=== PATIENT | female | born 1935 | race Hispanic/Latino ===

== ENCOUNTER 2017-04-17 14:56 | Emergency (ER) | payer OTHER ==
[~2017-04-17 14:56] MED LIST: AMLO10TA2 PO; ATOR40TA69 PO; CEPH500B PO; DABI150C PO; LEVO50TA11 PO; PANT40TA25 PO; PIND10TA2 PO; SIMV20TA6 PO
[2017-04-17 15:45] LABS: BASOPHILS % (AUTO) 0.7 % (0.0-5.0); EOSINOPHILS % (AUTO) 1.7 % (0.0-8.0); HEMATOCRIT 36.8 % (36-48); LYMPHOCYTES % (AUTO) 21.7 % (21.0-51.0); MEAN CORPUSCULAR HEMOGLOBIN 29.1 pg (27.0-33.0); MEAN CORPUSCULAR HGB CONC 33.1 g/dL (32.0-36.0); MEAN CORPUSCULAR VOLUME 87.8 fL (79-99); MONOCYTES % (AUTO) 7.1 % (3.0-13.0); NEUTROPHILS % (AUTO) 68.8 % (40.0-77.0); PLATELET COUNT (AUTO) 211 K/uL (130-400); RED BLOOD CELL COUNT(AUTO) 4.19 MIL/uL (4.00-5.50); RED CELL DISTRIBUTION WIDTH 16.4 % (11.0-15.5); WHITE BLOOD COUNT (AUTO) 8.1 K/uL (4.8-10.8)
[2017-04-17 16:02] LABS: CREATININE 1.1 mg/dL (0.5-1.5); POTASSIUM 4.1 mmol/L (3.5-5.1)
[2017-04-17 16:05] LABS: INR 1.05 (0.85-1.15)
[2017-04-17 16:07] LABS: ALBUMIN 3.5 g/dL (3.5-5.0); BILIRUBIN,TOTAL 0.4 mg/dL (0.2-1.0); TOTAL PROTEIN, SERUM 7.7 g/dL (6.0-8.3)
[2017-04-17] MEDS ORDERED: ACETAMINOPHEN 325 MG TAB ONE (16:34)
[2017-04-17 16:56] LABS: ERYTHROCYTE SEDIMENTATION RATE 30 MM/HR (0-15)
[2017-04-17] MEDS ORDERED: FUROSEMIDE 10 MG/ML 4ML VIAL ONE (18:04)
== END 2017-04-17 19:45 | disposition home or self-care (01) ==
LOC: EDH 14:56
DX: I11.0 Hypertensive heart disease with heart failure (principal); I50.41 Acute combined systolic (congestive) and diastolic (congestive) heart failure; E11.9 Type 2 diabetes mellitus without complications; E78.5 Hyperlipidemia, unspecified; M54.2 Cervicalgia; R60.0 Localized edema; Z86.73 Personal history of transient ischemic attack (TIA), and cerebral infarction without residual deficits
CPT/HCPCS: 36415; 70450; 71045; 80053; 83880; 84484 ×2; 85025; 85610; 85651; 85730; 93005 ×3; 96374; 99285; J1940

== ENCOUNTER → 2018-01-02 | Outpatient (CLI) | payer OTHER ==
[~2018-01-02] VITALS: Ht 152.4 cm; Wt 74.8 kg
[~2018-01-02] MED LIST changes: -AMLO10TA2 PO; +AMLO10TA6 PO; +REGADENOSON 0.4 MG/5 ML PF SYG IVP SCH
== END | disposition home or self-care (01) ==
LOC: SHCH 12-25 08:26
PROVIDERS: ATTEND Internal Medicine Cardiovascular Disease
DX: I13.0 Hypertensive heart and chronic kidney disease with heart failure and stage 1 through stage 4 chronic kidney disease, or unspecified chronic kidney disease (principal); E11.22 Type 2 diabetes mellitus with diabetic chronic kidney disease; N18.4 Chronic kidney disease, stage 4 (severe); I50.42 Chronic combined systolic (congestive) and diastolic (congestive) heart failure; E78.5 Hyperlipidemia, unspecified; M17.12 Unilateral primary osteoarthritis, left knee; I48.0 Paroxysmal atrial fibrillation; I25.10 Atherosclerotic heart disease of native coronary artery without angina pectoris; K21.9 Gastro-esophageal reflux disease without esophagitis; Z95.0 Presence of cardiac pacemaker
CPT/HCPCS: 78452; 93017; 96374; A9500 ×2; J2785

== ENCOUNTER 2018-11-23 10:42 | Emergency (ER) | payer OTHER ==
[~2018-11-23 10:42] MED LIST changes: -AMLO10TA6 PO; +AMLO10TA7 PO; -REGADENOSON 0.4 MG/5 ML PF SYG IVP SCH
[2018-11-23] MEDS ORDERED: SODIUM CHLORIDE 0.9% 500ML 500 ML IV ONE (10:59)
[2018-11-23] MEDS ORDERED: METOPROLOL TARTRATE 1 MG/ML 5ML VIAL IV ONE (11:14)
[2018-11-23 11:17] LABS: CREATININE 1.3 mg/dL (0.5-1.5); POTASSIUM 3.8 mmol/L (3.5-5.1)
[2018-11-23 11:31] LABS: ALBUMIN 3.8 g/dL (3.5-5.0); BILIRUBIN,TOTAL 0.8 mg/dL (0.2-1.0); T4 (THYROXINE) 10.9 ug/dL (4.7-13.3); THYROID STIMULATING HORMONE 3.07 uIU/mL (0.36-3.74); TOTAL PROTEIN, SERUM 8.5 g/dL (6.0-8.3)
[2018-11-23 11:52] LABS: BASOPHILS % (AUTO) 0.6 % (0.0-5.0); EOSINOPHILS % (AUTO) 1.1 % (0.0-8.0); HEMATOCRIT 46.4 % (36-48); LYMPHOCYTES % (AUTO) 18.2 % (21.0-51.0); MEAN CORPUSCULAR HEMOGLOBIN 28.5 pg (27.0-33.0); MEAN CORPUSCULAR HGB CONC 31.9 g/dL (32.0-36.0); MEAN CORPUSCULAR VOLUME 89.4 fL (79-99); MONOCYTES % (AUTO) 8.3 % (3.0-13.0); NEUTROPHILS % (AUTO) 71.8 % (40.0-77.0); PLATELET COUNT (AUTO) 209 K/uL (130-400); RED CELL DISTRIBUTION WIDTH 14.4 % (11.0-15.5); WHITE BLOOD COUNT (AUTO) 10.3 K/uL (4.8-10.8)
[2018-11-23 12:09] LABS: INR 1.48 (0.85-1.15); PARTIAL THROMBOPLASTIN TIME 53.3 SEC (26.3-35.5); PROTHROMBIN TIME 15.4 SEC (9.6-11.6)
[2018-11-23] MEDS ORDERED: [UNRECOGNIZED DRUG - OTHER] IVP SCH (12:11)
== END 2018-11-23 13:11 | disposition home or self-care (01) ==
LOC: EDH 10:42
DX: R00.0 Tachycardia, unspecified (principal); I10 Essential (primary) hypertension; E11.9 Type 2 diabetes mellitus without complications; E78.5 Hyperlipidemia, unspecified; Z86.73 Personal history of transient ischemic attack (TIA), and cerebral infarction without residual deficits; Z98.890 Other specified postprocedural states
CPT/HCPCS: 36415; 80053; 84436; 84443; 85025; 85610; 85730; 93005; 96374; 99285; J3490; J7040

== ENCOUNTER 2018-12-10 11:06 | Observation (INO) | payer OTHER ==
[~2018-12-10] VITALS: Ht 152.4 cm; Wt 73.3 kg
[2018-12-10 11:39] LABS: BASOPHILS % (AUTO) 0.4 % (0.0-5.0); EOSINOPHILS % (AUTO) 1.3 % (0.0-8.0); HEMATOCRIT 42.6 % (36-48); LYMPHOCYTES % (AUTO) 15.9 % (21.0-51.0); MEAN CORPUSCULAR HEMOGLOBIN 29.4 pg (27.0-33.0); MEAN CORPUSCULAR HGB CONC 33.3 g/dL (32.0-36.0); MEAN CORPUSCULAR VOLUME 88.2 fL (79-99); MONOCYTES % (AUTO) 6.2 % (3.0-13.0); NEUTROPHILS % (AUTO) 76.2 % (40.0-77.0); PLATELET COUNT (AUTO) 213 K/uL (130-400); RED BLOOD CELL COUNT(AUTO) 4.83 MIL/uL (4.00-5.50); RED CELL DISTRIBUTION WIDTH 14.7 % (11.0-15.5); WHITE BLOOD COUNT (AUTO) 11.2 K/uL (4.8-10.8)
[2018-12-10 11:43] LABS: CREATININE 1.3 mg/dL (0.5-1.5); POTASSIUM 3.3 mmol/L (3.5-5.1)
[2018-12-10] MEDS ORDERED: NITROGLYCERIN 1GM/1 INCH PACKET TD ONE (12:14)
[2018-12-10] MEDS ORDERED: ASPIRIN 325 MG TABLET ONE (12:14)
[2018-12-10] MEDS ORDERED: SODIUM CHLORIDE 0.9% 1000ML 1,000 ML IV ONE (12:37)
[2018-12-10] MEDS ORDERED: IOHEXOL 350 MG/ML 100ML INFUS..BTL IV ONE (12:54)
[2018-12-10] MEDS ORDERED: METOPROLOL TARTRATE 1 MG/ML 5ML VIAL IV ONE (15:10)
[2018-12-10] MEDS ORDERED: METOPROLOL TARTRATE 1 MG/ML 5ML VIAL IV SCH (15:15)
[2018-12-10] MEDS ORDERED: POTASSIUM CHLORIDE 20 MEQ ERTAB PO ONE (15:49)
[2018-12-10 16:20] VITALS: BP 106/47
[2018-12-10] MEDS: ONDANSETRON HCL 4 MG/2 ML VIAL IVP SCH (17:00)
[2018-12-10] MEDS ORDERED: LIDOCAINE HCL-MPF 1% 2ML VIAL IJ PRN (17:15)
[2018-12-10] MEDS ORDERED: HYDROCODONE/ACETAMINOPHEN 5/325 MG TAB PO PRN (17:15)
[2018-12-10] MEDS ORDERED: LABETALOL 20 MG/4 ML DISP.SYRIN IV PRN (17:15)
[2018-12-10] MEDS ORDERED: ACETAMINOPHEN 325 MG TAB PO PRN (17:15)
[2018-12-10] MEDS ORDERED: POTASSIUM CHLORIDE 10% ELIXIR 20 MEQ/15 ML UDCUP PO PRN (17:15)
[2018-12-10] MEDS ORDERED: MORPHINE SULFATE 2 MG/ML 1ML SYG IVP PRN (17:15)
[2018-12-10] MEDS ORDERED: POTASSIUM CHLORIDE 20MEQ/100ML 100 ML IV PRN (17:15)
[2018-12-10 17:57] LABS: CREATINE KINASE, TOTAL 39 U/L (21-232); MYOGLOBIN 74 ng/mL (10-92); TROPONIN I < 0.04 ng/mL (0.00-0.06)
[2018-12-10] MEDS ORDERED: MIRA25TA PO (18:12)
[2018-12-10] MEDS ORDERED: METO50TA18 PO (18:12)
[2018-12-10] MEDS ORDERED: HYDR25TA PO (18:12)
[2018-12-10] MEDS: POTASSIUM CHLORIDE 20 MEQ ERTAB PO PRN ×2 (18:47→21:13)
[2018-12-10 19:08] VITALS: BP 154/78
[2018-12-10] MEDS: DABIGATRAN ETEXILATE MESYLATE 150 MG CAPSULE PO SCH (21:27)
[2018-12-10 23:47] LABS: CREATINE KINASE, TOTAL 48 U/L (21-232); MYOGLOBIN 71 ng/mL (10-92); TROPONIN I < 0.04 ng/mL (0.00-0.06)
[2018-12-11] VITALS: BP 157/95
[2018-12-11] MEDS: ONDANSETRON HCL 4 MG/2 ML VIAL IVP SCH ×3 (00:02→16:31)
[2018-12-11 04:10] VITALS: BP 130/56
[2018-12-11 04:59] LABS: CREATINE KINASE, TOTAL 35 U/L (21-232); MYOGLOBIN 69 ng/mL (10-92); TROPONIN I < 0.04 ng/mL (0.00-0.06)
[2018-12-11] MEDS: LEVOTHYROXINE 50 MCG TABLET PO SCH (06:39)
[2018-12-11 07:40] VITALS: BP 138/69
[2018-12-11] MEDS: PANTOPRAZOLE SODIUM 40 MG TABLET.DR PO SCH (08:47)
[2018-12-11] MEDS: ASPIRIN 81MG TAB.CHEW PO SCH (08:47)
[2018-12-11] MEDS: DABIGATRAN ETEXILATE MESYLATE 150 MG CAPSULE PO SCH ×2 (08:48→21:00)
[2018-12-11] MEDS: PINDOLOL 5 MG PO SCH (08:58)
[2018-12-11] MEDS ORDERED: ATORVASTATIN CALCIUM 40 MG TABLET PO SCH ×2 (09:00→21:00)
[2018-12-11] MEDS: AMLODIPINE BESYLATE 5 MG TAB PO SCH (09:00)
--- NOTE | 2018-12-11 09:30 | NUR ---
DYSPHAGIA EVAL COMPLETED. -S/S OF ASPIRATION. RECOMMEND REGULAR TEXTURE, THIN LIQUIDS; PILLS WHOLE WITH LIQUIDS. PLEASE ADD GRAVY TO MEATS, Pt COMPLAINS MEATS CAN BE TOO DRY FOR HER. Addendum: 12/11/18 at 1152 by JEFF ECHEVERRIA, [facility] Amended: Links added.
[2018-12-11 12:00] VITALS: BP 119/66
--- NOTE | 2018-12-11 13:25 | NUR ---
DCP CM met with pt and family discussed dc plans. Pt is semi-independent prior to admission, lives at home with spouse, family lives close by. Pt has a provider 6hrs between pt and spouse, jeremi. Denies any other equipments/services. Feels safe to go back home, spouse and family able to assist with transportation and needs as necessary. DC plan to home once stable. CM to cont to follow up. Addendum: 12/11/18 at 1327 by POP ENGLAND LVN CM Amended: Links added.
[2018-12-11 16:00] VITALS: BP 134/74
--- NOTE | 2018-12-11 16:18 | NUR ---
Pt Update Pt pending clearance form Cardio, Dr. Eisenberg paged by departmental secretary, pending call back from [facility].
[2018-12-11 20:00] VITALS: BP 147/59
[2018-12-11] MEDS ORDERED: METOPROLOL TARTRATE 50 MG TAB PO SCH (21:00)
[2018-12-12] VITALS: BP 149/82
[2018-12-12] MEDS: ONDANSETRON HCL 4 MG/2 ML VIAL IVP SCH ×2 (01:51→08:11)
[2018-12-12 04:00] VITALS: BP 136/56
[2018-12-12] MEDS: LEVOTHYROXINE 50 MCG TABLET PO SCH (06:29)
[2018-12-12 07:00] VITALS: BP 149/66
[2018-12-12] MEDS: PANTOPRAZOLE SODIUM 40 MG TABLET.DR PO SCH (08:10)
[2018-12-12] MEDS: DABIGATRAN ETEXILATE MESYLATE 150 MG CAPSULE PO SCH (08:10)
[2018-12-12] MEDS: ASPIRIN 81MG TAB.CHEW PO SCH (08:11)
[2018-12-12] MEDS: PINDOLOL 5 MG PO SCH (08:11)
[2018-12-12] MEDS: AMLODIPINE BESYLATE 5 MG TAB PO SCH (08:14)
[2018-12-12] MEDS ORDERED: ONDANSETRON HCL 4 MG/2 ML VIAL IVP PRN (08:30)
[2018-12-12] MEDS ORDERED: HYDROCHLOROTHIAZIDE 25 MG TABLET PO SCH (09:00)
[2018-12-12] MEDS ORDERED: **HM** MYRBETRIQ 25MG PO SCH (09:00)
[2018-12-12 11:00] VITALS: BP 142/75
--- NOTE | 2018-12-12 12:40 | NUR ---
Pt Update Pt d/c at this time, d/c paper signed, PIV taken out, no complication noted, awaiting spouse for transportation to home.
== END 2018-12-12 13:20 | disposition home or self-care (01) ==
LOC: EDH 11:06 → EDHIP 14:10 → 3BH 17:09
PROVIDERS: ADMIT Internal Medicine Critical Care Medicine; ATTEND Internal Medicine Critical Care Medicine
DX: R07.89 Other chest pain (principal); E11.9 Type 2 diabetes mellitus without complications; E66.9 Obesity, unspecified; E78.5 Hyperlipidemia, unspecified; I10 Essential (primary) hypertension; I25.10 Atherosclerotic heart disease of native coronary artery without angina pectoris; I42.9 Cardiomyopathy, unspecified; I45.10 Unspecified right bundle-branch block; I48.2 Chronic atrial fibrillation; Z79.01 Long term (current) use of anticoagulants; Z95.0 Presence of cardiac pacemaker; Z95.1 Presence of aortocoronary bypass graft; Z79.899 Other long term (current) drug therapy; Z86.73 Personal history of transient ischemic attack (TIA), and cerebral infarction without residual deficits
CPT/HCPCS: 36415 ×2; 71045; 71275; 80048; 82550 ×3; 82948 ×8; 83874 ×3; 84132; 84484 ×4; 85025; 85378; 92610; 93005 ×2; 96374; 96376; 99291; G0378 ×47; J2405 ×2; J3490; J7030; Q9967

== ENCOUNTER 2019-02-04 19:05 | Inpatient (IN) | payer OTHER ==
[~2019-02-04] VITALS: Ht 149.9 cm; Wt 74.9 kg
[~2019-02-04 19:05] MED LIST changes: -AMLO10TA7 PO; -CEPH500B PO; +HYDR25TA PO; +METO50TA18 PO; +MIRA25TA PO; -PIND10TA2 PO; -SIMV20TA6 PO
[2019-02-04 19:38] LABS: APPEARANCE,URINE Clear (CLEAR); BILIRUBIN,URINE Negative (NEGATIVE); COLOR,URINE Yellow (YELLOW); GLUCOSE, URINE (UA) Negative (NEGATIVE); KETONES,URINE Negative (NEGATIVE); LEUKOCYTE ESTERASE ,URINE Moderate (NEGATIVE); NITRATE,URINE Negative (NEGATIVE); OCCULT BLOOD,URINE Trace (NEGATIVE); PROTEIN,URINE POS 1+ mg/dL (NEGATIVE)
[2019-02-04] MEDS ORDERED: ONDANSETRON HCL 4 MG/2 ML VIAL ONE (19:39)
[2019-02-04] MEDS ORDERED: SODIUM CHLORIDE 0.9% 1000ML 1,000 ML IV ONE (19:40)
[2019-02-04] MEDS ORDERED: MORPHINE SULFATE 4 MG/1ML SYG ONE ×2 (19:40→21:11)
[2019-02-04 19:44] LABS: BASOPHILS % (AUTO) 0.7 % (0.0-5.0); HEMATOCRIT 45.2 % (36-48); LYMPHOCYTES % (AUTO) 8.1 % (21.0-51.0); MEAN CORPUSCULAR HGB CONC 33.6 g/dL (32.0-36.0); MEAN CORPUSCULAR VOLUME 89.3 fL (79-99); MONOCYTES % (AUTO) 4.1 % (3.0-13.0); NEUTROPHILS % (AUTO) 87.1 % (40.0-77.0); NUCLEATED RED BLOOD CELLS 0.1 % (0.0-0.19); PLATELET COUNT (AUTO) 230 K/uL (130-400); RED BLOOD CELL COUNT(AUTO) 5.06 MIL/uL (4.00-5.50); RED CELL DISTRIBUTION WIDTH 15.3 % (11.0-15.5); WHITE BLOOD COUNT (AUTO) 15.8 K/uL (4.8-10.8)
[2019-02-04 19:53] LABS: BACTERIA,URINE Few /HPF (None Seen)
[2019-02-04 19:54] LABS: SQUAMOUS EPITHELIAL CELL,UR Few /HPF (0-2)
[2019-02-04 19:59] LABS: INR 1.25 (0.85-1.15)
[2019-02-04 20:19] LABS: CREATININE 1.3 mg/dL (0.5-1.5); POTASSIUM 3.4 mmol/L (3.5-5.1)
[2019-02-04 20:24] LABS: ALBUMIN 3.9 g/dL (3.5-5.0); BILIRUBIN,TOTAL 0.7 mg/dL (0.2-1.0); TOTAL PROTEIN, SERUM 8.9 g/dL (6.0-8.3)
[2019-02-04] MEDS ORDERED: METOPROLOL TARTRATE 1 MG/ML 5ML VIAL IV ONE ×2 (21:11→23:05)
[2019-02-04] MEDS ORDERED: ZOSYN 3.375GM+NS 50ML 50 ML IV ONE (23:28)
[2019-02-04] MEDS ORDERED: DILTIAZEM HCL 5 MG/ML 5 ML VIAL IVP PRN (23:45)
[2019-02-05] MEDS ORDERED: ONDANSETRON HCL 4 MG/2 ML VIAL ONE ×2 (00:13→09:36)
[2019-02-05] MEDS ORDERED: METOPROLOL TARTRATE 1 MG/ML 5ML VIAL IV ONE (00:13)
[2019-02-05] MEDS ORDERED: DILTIAZEM HCL 5 MG/ML 5 ML VIAL IVP ONE ×2 (00:34→02:19)
[2019-02-05] MEDS ORDERED: HYDROMORPHONE 1 MG/1 ML AMP ONE ×2 (00:45→15:30)
[2019-02-05] MEDS ORDERED: SODIUM CHLORIDE 0.9% 100 ML IV ONE (02:18)
[2019-02-05] MEDS ORDERED: DILTIAZEM HCL 5 MG/ML 10 ML VIAL IV ONE (02:18)
[2019-02-05] MEDS ORDERED: ZOSYN 3.375GM+NS 50ML 50 ML IV ONE ×2 (06:38→11:46)
[2019-02-05 16:25] VITALS: BP 117/49
[2019-02-05] MEDS ORDERED: DILTIAZEM 125MG+100 ML NS 125 ML IV STA (17:50)
[2019-02-05] MEDS ORDERED: NICARDIPINE IN NACL, ISO-OSM 200 ML IV PRN (18:00)
[2019-02-05] MEDS ORDERED: DILTIAZEM HCL 5 MG/ML 10 ML VIAL IV PRN (18:00)
--- NOTE | 2019-02-05 18:00 | NUR ---
ROLAND FORREST FOR CONSULT.
[2019-02-05] MEDS ORDERED: NICARDIPINE HCL 100 MG in SODIUM CHLORIDE 0.9% 60 ML IV PRN (18:15)
[2019-02-05] MEDS ORDERED: DILTIAZEM 125MG+100 ML NS 125 ML IV SCH (18:15)
[2019-02-05] MEDS: DEXTROSE 5 %-0.45 % NACL 1,000 ML IV SCH (18:46)
[2019-02-05] MEDS: INSULIN HUMULIN R 100 UNIT/ML 3ML SQ SCH (19:39)
[2019-02-05 20:26] VITALS: BP 105/59
[2019-02-06] VITALS (7 sets, daily range): BP systolic 116–133; BP diastolic 58–96
[2019-02-06] MEDS: ZOSYN 3.375GM+NS 50ML 50 ML IV SCH ×2 (00:41→12:12)
[2019-02-06] MEDS: HYDROMORPHONE 1 MG/1 ML AMP IVP PRN ×3 (01:51→21:20)
[2019-02-06] MEDS: ONDANSETRON HCL 4 MG/2 ML VIAL IVP PRN (01:51)
[2019-02-06] MEDS: INSULIN HUMULIN R 100 UNIT/ML 3ML SQ SCH ×4 (06:01→21:00)
[2019-02-06 11:32] LABS: BASOPHILS % (AUTO) 0.1 % (0.0-5.0); HEMATOCRIT 42.4 % (36-48); LYMPHOCYTES % (AUTO) 2.4 % (21.0-51.0); MEAN CORPUSCULAR HEMOGLOBIN 29.4 pg (27.0-33.0); MEAN CORPUSCULAR HGB CONC 32.8 g/dL (32.0-36.0); MEAN CORPUSCULAR VOLUME 89.5 fL (79-99); MONOCYTES % (AUTO) 3.2 % (3.0-13.0); NEUTROPHILS % (AUTO) 94.3 % (40.0-77.0); PLATELET COUNT (AUTO) 151 K/uL (130-400); RED BLOOD CELL COUNT(AUTO) 4.73 MIL/uL (4.00-5.50); RED CELL DISTRIBUTION WIDTH 15.5 % (11.0-15.5)
[2019-02-06 11:45] LABS: ALBUMIN 2.4 g/dL (3.5-5.0); BILIRUBIN,TOTAL 0.9 mg/dL (0.2-1.0); CREATININE 2.8 mg/dL (0.5-1.5); POTASSIUM 3.3 mmol/L (3.5-5.1); TOTAL PROTEIN, SERUM 7.1 g/dL (6.0-8.3)
[2019-02-06 11:49] LABS: WHITE BLOOD COUNT (AUTO) 30.7 K/uL (4.8-10.8)
[2019-02-06 12:16] LABS: BAND NEUTROPHILS % (MANUAL) 11 % (0-2); LYMPHOCYTES % (MANUAL) 2 % (22-44); MONOCYTES % (MANUAL) 1 % (2-9); SEGMENTED NEUTROPHILS % 86 % (40-70)
[2019-02-06 12:17] LABS: PLATELET MORPHOLOGY COMMENT ADEQUATE
--- NOTE | 2019-02-06 16:48 | NUR ---
cm note met with patient and states resides athome with spouse has walker, and cane alternatively. has provider 2-3 hrs daily to assist with adls and self care, spouse transports to md. dc plan is back home at time of dc. Addendum: 02/06/19 at 1649 by WAYNE ALFREDO CM Amended: Links added.
[2019-02-06] MEDS: DEXTROSE 5 %-0.45 % NACL 1,000 ML IV SCH (17:45)
[2019-02-07] VITALS (26 sets, daily range): BP systolic 81–137; BP diastolic 41–79
[2019-02-07] MEDS: INSULIN HUMULIN R 100 UNIT/ML 3ML SQ SCH ×3 (00:33→18:40)
[2019-02-07] MEDS: ZOSYN 3.375GM+NS 50ML 50 ML IV SCH ×2 (00:33→12:10)
[2019-02-07] MEDS: HYDROMORPHONE 1 MG/1 ML AMP IVP PRN (02:02)
[2019-02-07 07:54] LABS: INR 1.2 (0.85-1.15); PROTHROMBIN TIME 12.5 SEC (9.6-11.6)
[2019-02-07] MEDS: FAMOTIDINE/PF 20 MG/2 ML VIAL IV SCH (09:03)
[2019-02-07] MEDS ORDERED: SUCCINYLCHOLINE 200MG/10ML SYR ONE (13:32)
[2019-02-07] MEDS ORDERED: LIDOCAINE PF 2% 5ML ABBOJECT ONE (13:32)
[2019-02-07] MEDS ORDERED: DEXAMETHASONE SOD PHOSPHATE 10MG/ML 1ML VIAL ONE (13:32)
[2019-02-07] MEDS ORDERED: PROPOFOL 10 MG/ML 20ML VIAL IV ONE (13:34)
[2019-02-07] MEDS ORDERED: NEOSTIGMINE 5MG/5ML SYR IV ONE (13:34)
[2019-02-07] MEDS ORDERED: ONDANSETRON HCL 4 MG/2 ML VIAL ONE (13:34)
[2019-02-07] MEDS ORDERED: GLYCOPYRROLATE 1 MG/5 ML SYRINGE ONE (13:34)
[2019-02-07] MEDS ORDERED: MIDAZOLAM HCL 1 MG/ML 2ML VIAL ONE (13:34)
[2019-02-07] MEDS ORDERED: ROCURONIUM 10MG/1ML SYR 10 MG/ML ML ONE ×2 (13:35→15:04)
[2019-02-07] MEDS ORDERED: FENTANYL CITRATE PF 50 MCG/1 ML 2ML VIAL ONE (13:35)
--- NOTE | 2019-02-07 13:44 | NUR ---
RD Notification Pt admitted for Afib RVR, Acute Cholecystitis. RD Notification of dry mouth, NGT present. Pt NPO Pending Procedure. NGT previously placed secondary to intractable N/V, as per EMR. Anticipate improved symptoms, post-procedure, therefore recommend, when medically feasible, advance diet as tolerated to Low Fat, 60gm, Heart Healthy diet, Ensure Clear with meals. Recommend ice chips for dry mouth, as medically feasible. Pt is advanced age (83y/o). Pt LBM 02/03/19. Pt monitored labs: WBC 30.7, K 3.3, BUN 51, Cr 2.8, GFR 17, Glu 211, Alb 2.4. RD to continue to monitor. Please notify RD as additional nutrition concerns arise. Thank you. Addendum: 02/07/19 at [address] Amended: Links added.
[2019-02-07] MEDS ORDERED: EPHEDRINE SULFATE 50 MG/ML AMPULE ONE (13:47)
[2019-02-07] MEDS ORDERED: BUPIVACAINE/PF 0.5% 30ML VIAL ONE (13:50)
[2019-02-07] MEDS: SODIUM CHLORIDE 0.9% 1000ML 1,000 ML IV SCH ×2 (15:10→16:00)
[2019-02-07] MEDS ORDERED: PROPOFOL 1000 MG/100 ML 100 ML IV ONE (15:14)
--- NOTE | 2019-02-07 15:40 | NUR ---
Dr. Ruiz notified about consult and patients status by telephone. Asked for orders to be inserted. Was given an update by telephone when ABGs and chest x-ray were completed.
[2019-02-07] MEDS ORDERED: PROPOFOL 1000 MG/100 ML 100 ML IV PRN (15:45)
[2019-02-07] MEDS ORDERED: SODIUM CHLORIDE 0.9% 1000ML 1,000 ML IV ONE (15:55)
[2019-02-07 16:00] LABS: ABG BASE EXCESS -8.5 mmol/L (-2.0-3.0); ABG OXYGEN SATURATION 98.5 % (95.0-99.0); ABG PCO2 31 mmHg (32-45)
[2019-02-07 16:28] LABS: BASOPHILS % (AUTO) 0.1 % (0.0-5.0); EOSINOPHILS % (AUTO) 0.2 % (0.0-8.0); LYMPHOCYTES % (AUTO) 2.9 % (21.0-51.0); MEAN CORPUSCULAR HEMOGLOBIN 29.2 pg (27.0-33.0); MEAN CORPUSCULAR HGB CONC 32.2 g/dL (32.0-36.0); MEAN CORPUSCULAR VOLUME 90.6 fL (79-99); MONOCYTES % (AUTO) 3.8 % (3.0-13.0); PLATELET COUNT (AUTO) 114 K/uL (130-400); RED BLOOD CELL COUNT(AUTO) 3.75 MIL/uL (4.00-5.50); RED CELL DISTRIBUTION WIDTH 15.8 % (11.0-15.5); WHITE BLOOD COUNT (AUTO) 14.8 K/uL (4.8-10.8)
[2019-02-07 16:46] LABS: ALBUMIN 1.7 g/dL (3.5-5.0); BILIRUBIN,TOTAL 0.6 mg/dL (0.2-1.0); CREATININE 2.2 mg/dL (0.5-1.5); TOTAL PROTEIN, SERUM 5.6 g/dL (6.0-8.3)
[2019-02-07] MEDS: DEXTROSE 5 %-0.45 % NACL 1,000 ML IV SCH (17:45)
[2019-02-07 17:49] LABS: MAGNESIUM 1.5 mg/dL (1.80-2.40); PHOSPHORUS 4.2 mg/dL (2.5-4.9)
--- NOTE | 2019-02-07 18:00 | NUR ---
Dr Acevedo at bedside given an update on patient status
[2019-02-07] MEDS: POTASSIUM CHLORIDE 20MEQ/100ML 100 ML IV PRN ×2 (18:24→20:05)
[2019-02-07] MEDS ORDERED: LIDOCAINE HCL-MPF 1% 2ML VIAL ONE (19:54)
[2019-02-07] MEDS: MAGNESIUM 2GM PREMIX 50ML 50 ML IV PRN (20:00)
[2019-02-08] VITALS (62 sets, daily range): BP systolic 99–184; BP diastolic 35–93
[2019-02-08] MEDS: ZOSYN 3.375GM+NS 50ML 50 ML IV SCH ×2 (01:16→11:54)
[2019-02-08] MEDS: SODIUM CHLORIDE 0.9% 1000ML 1,000 ML IV SCH ×2 (01:17→11:58)
[2019-02-08] MEDS: INSULIN HUMULIN R 100 UNIT/ML 3ML SQ SCH ×4 (01:50→21:00)
--- NOTE | 2019-02-08 02:09 | NUR ---
REMAINS INTUBATED/SEDATED. NO DISTRESS NOTED. NO CHANGE IN STATUS. ABDOMINAL INCISIONS WITH DRESSINGS DRY & INTACT. BEDSIDE MONITORING. Addendum: 02/08/19 at 0210 by GABRIELE MONROE RN RN Amended: Links added.
[2019-02-08 05:34] LABS: BASOPHILS % (AUTO) 0.2 % (0.0-5.0); HEMATOCRIT 29.6 % (36-48); LYMPHOCYTES % (AUTO) 4.1 % (21.0-51.0); MEAN CORPUSCULAR HEMOGLOBIN 29.6 pg (27.0-33.0); MEAN CORPUSCULAR HGB CONC 32.9 g/dL (32.0-36.0); MEAN CORPUSCULAR VOLUME 90.2 fL (79-99); MONOCYTES % (AUTO) 4.8 % (3.0-13.0); NEUTROPHILS % (AUTO) 89.9 % (40.0-77.0); PLATELET COUNT (AUTO) 102 K/uL (130-400); RED BLOOD CELL COUNT(AUTO) 3.29 MIL/uL (4.00-5.50); RED CELL DISTRIBUTION WIDTH 16.1 % (11.0-15.5); WHITE BLOOD COUNT (AUTO) 20.3 K/uL (4.8-10.8)
[2019-02-08 06:02] LABS: ALBUMIN 1.5 g/dL (3.5-5.0); BILIRUBIN,TOTAL 0.6 mg/dL (0.2-1.0); CREATININE 2.4 mg/dL (0.5-1.5); POTASSIUM 3.6 mmol/L (3.5-5.1); TOTAL PROTEIN, SERUM 5.3 g/dL (6.0-8.3)
[2019-02-08] MEDS ORDERED: PHARMACY COMMUNICATION MISC SCH ×2 (06:45→08:00)
[2019-02-08] MEDS: HYDROMORPHONE 1 MG/1 ML AMP IVP PRN ×2 (08:10→22:14)
[2019-02-08] MEDS: FAMOTIDINE/PF 20 MG/2 ML VIAL IV SCH (08:13)
[2019-02-08] MEDS ORDERED: AMIODARONE HCL 700 MG in DEXTROSE 5%-WATER 500 ML IV SCH (08:15)
[2019-02-08] MEDS ORDERED: AMIODARONE HCL 300 MG in DEXTROSE 5%-WATER 250 ML IV SCH (08:15)
--- NOTE | 2019-02-08 08:55 | NUR ---
Drainage noted around the AUSTEN drain site so dressing was removed and changed
[2019-02-08 08:56] LABS: ABG BASE EXCESS -8.1 mmol/L (-2.0-3.0); ABG HCO3 15.9 mmol/L (21.0-28.0); ABG OXYGEN SATURATION 98.2 % (95.0-99.0); ABG PCO2 29 mmHg (32-45)
--- NOTE | 2019-02-08 13:30 | NUR ---
Patient extubated at 1330 RT and RN present
[2019-02-08] MEDS ORDERED: POTASSIUM CHLORIDE 20 MEQ ERTAB PO PRN (14:45)
[2019-02-08] MEDS ORDERED: LIDOCAINE HCL-MPF 1% 2ML VIAL IV PRN (14:45)
[2019-02-08] MEDS ORDERED: POTASSIUM CHLORIDE 20MEQ/100ML 100 ML IV PRN (14:45)
[2019-02-08] MEDS: DEXTROSE 5 %-0.45 % NACL 1,000 ML IV SCH (17:45)
--- NOTE | 2019-02-08 18:08 | NUR ---
Dr. Lindsey rounded updated on patients condition. ordered for NG tube to be removed
[2019-02-08] MEDS ORDERED: INSULIN HUMULIN R 100 UNIT/ML 3ML SQ SCH (21:00)
[2019-02-09] VITALS (25 sets, daily range): BP systolic 104–179; BP diastolic 43–119
[2019-02-09] MEDS: ZOSYN 3.375GM+NS 50ML 50 ML IV SCH ×3 (00:34→23:10)
[2019-02-09] MEDS: SODIUM CHLORIDE 0.9% 1000ML 1,000 ML IV SCH ×3 (00:35→21:39)
[2019-02-09] MEDS: INSULIN HUMULIN R 100 UNIT/ML 3ML SQ SCH ×5 (00:37→20:27)
[2019-02-09 03:56] LABS: BASOPHILS % (AUTO) 0.1 % (0.0-5.0); HEMATOCRIT 27.2 % (36-48); LYMPHOCYTES % (AUTO) 4.5 % (21.0-51.0); MEAN CORPUSCULAR HEMOGLOBIN 28.7 pg (27.0-33.0); MEAN CORPUSCULAR HGB CONC 32.3 g/dL (32.0-36.0); MEAN CORPUSCULAR VOLUME 88.9 fL (79-99); MONOCYTES % (AUTO) 4.6 % (3.0-13.0); NEUTROPHILS % (AUTO) 90.8 % (40.0-77.0); PLATELET COUNT (AUTO) 101 K/uL (130-400); RED BLOOD CELL COUNT(AUTO) 3.06 MIL/uL (4.00-5.50); RED CELL DISTRIBUTION WIDTH 15.9 % (11.0-15.5)
[2019-02-09 04:00] LABS: CREATININE 1.8 mg/dL (0.5-1.5)
[2019-02-09 04:03] LABS: POTASSIUM 2.9 mmol/L (3.5-5.1)
[2019-02-09] MEDS: POTASSIUM CHLORIDE 20MEQ/100ML 100 ML IV PRN ×2 (04:18→12:27)
--- NOTE | 2019-02-09 09:02 | NUR ---
DYSPHAGIA EVAL COMPLETED. -S/S OF ASPIRATION. RECOMMEND MECHANICAL SOFT/CHOPPED, THIN LIQUIDS; PILLS WHOLE WITH LIQUIDS. Addendum: 02/10/19 at 0804 by JEFF ECHEVERRIA, [facility] Amended: Links added.
[2019-02-09] MEDS: FAMOTIDINE/PF 20 MG/2 ML VIAL IV SCH (09:17)
[2019-02-09] MEDS: AMIODARONE HCL 200 MG TABLET PO SCH (09:18)
[2019-02-09] MEDS: DEXTROSE 5 %-0.45 % NACL 1,000 ML IV SCH (17:45)
[2019-02-10] VITALS (18 sets, daily range): BP systolic 32–167; BP diastolic 12–117
[2019-02-10 03:54] LABS: HEMATOCRIT 27.5 % (36-48); MEAN CORPUSCULAR HEMOGLOBIN 29.3 pg (27.0-33.0); MEAN CORPUSCULAR HGB CONC 32.8 g/dL (32.0-36.0); MEAN CORPUSCULAR VOLUME 89.4 fL (79-99); PLATELET COUNT (AUTO) 100 K/uL (130-400); RED BLOOD CELL COUNT(AUTO) 3.08 MIL/uL (4.00-5.50); WHITE BLOOD COUNT (AUTO) 14.1 K/uL (4.8-10.8)
[2019-02-10] MEDS: SODIUM CHLORIDE 0.9% 1000ML 1,000 ML IV SCH (04:10)
[2019-02-10 04:20] LABS: CREATININE 1.2 mg/dL (0.5-1.5); POTASSIUM 3.4 mmol/L (3.5-5.1)
[2019-02-10] MEDS: POTASSIUM CHLORIDE 10% ELIXIR 20 MEQ/15 ML UDCUP PO PRN ×2 (05:46→08:34)
[2019-02-10] MEDS: INSULIN HUMULIN R 100 UNIT/ML 3ML SQ SCH ×3 (06:32→17:07)
--- NOTE | 2019-02-10 07:30 | NUR ---
Bedside report given to incoming NOD using SBAR,all questions answered.Reviewed labs,meds and V/s.
[2019-02-10] MEDS: METOPROLOL TARTRATE 25 MG TAB PO SCH ×2 (08:33→18:26)
[2019-02-10] MEDS: FAMOTIDINE/PF 20 MG/2 ML VIAL IV SCH (08:33)
[2019-02-10] MEDS: AMIODARONE HCL 200 MG TABLET PO SCH (08:33)
[2019-02-10] MEDS ORDERED: DABIGATRAN ETEXILATE MESYLATE 150 MG CAPSULE PO SCH (09:00)
--- NOTE | 2019-02-10 11:28 | NUR ---
FOLLOW UP COMPLETED. Pt CURRENTLY ON LIQUID DIET PER SURGEONS RECOMMENDATIONS. OK TO ADVANCE TO MECHANICAL SOFT/CHOPPED THIN LIQUIDS WHEN CLEARED BY SURGEON. CONTINUE CURRENT DIET. Addendum: 02/10/19 at 1131 by JEFF ECHEVERRIA, [facility] Amended: Links added.
--- NOTE | 2019-02-10 11:30 | NUR ---
DR. ANDERSEN AT BEDSIDE. PLAN OF CARE DISCUSSED. NEW ORDERS RECEIVED AND NOTED.
[2019-02-10] MEDS: DEXTROSE 5%-WATER 1,000 ML IV SCH (11:59)
[2019-02-10] MEDS: ZOSYN 3.375GM+NS 50ML 50 ML IV SCH (11:59)
--- NOTE | 2019-02-10 14:00 | NUR ---
DR. KOTHARI AND / KEMI SRIVASTAVA CALLED AND NOTIFIED OF HEMATURIA.NEW ORDERS RECEIVED AND NOTED.
--- NOTE | 2019-02-10 14:19 | NUR ---
RD NOTIFICATION Diet: Clear Liquids. [employer] consulted and recommends mechanical soft/chopped, thin liquids. Pt tolerating diet well at this time. LBM: 02/06, noted. Pt with po intake at 75% and has fair appetite. Recommendations: Assistance with all meals Offer oral supplementation- Glucerna BID Recommend a stool softener Advance diet when medically feasible to full liquids, lastly to 75gmCCD and Low fat diet/ mechanical soft/chopped. RD will monitor and follow up as needed, thank you. Addendum: 02/10/19 at [address] Amended: Links added.
[2019-02-10 14:34] LABS: HEMATOCRIT 29.7 % (36-48); MEAN CORPUSCULAR HEMOGLOBIN 29.3 pg (27.0-33.0); MEAN CORPUSCULAR HGB CONC 32.4 g/dL (32.0-36.0); MEAN CORPUSCULAR VOLUME 90.3 fL (79-99); PLATELET COUNT (AUTO) 117 K/uL (130-400); RED BLOOD CELL COUNT(AUTO) 3.29 MIL/uL (4.00-5.50); RED CELL DISTRIBUTION WIDTH 16.1 % (11.0-15.5); WHITE BLOOD COUNT (AUTO) 12.6 K/uL (4.8-10.8)
[2019-02-10 14:47] LABS: INR 1.22 (0.85-1.15); MAGNESIUM 1.9 mg/dL (1.80-2.40); PARTIAL THROMBOPLASTIN TIME 46.1 SEC (26.3-35.5); PHOSPHORUS 2.5 mg/dL (2.5-4.9); PROTHROMBIN TIME 12.7 SEC (9.6-11.6)
--- NOTE | 2019-02-10 16:30 | NUR ---
PT TAKEN FOR CT HEAD. TOLERATED WELL.
[2019-02-10] MEDS: DEXTROSE 5 %-0.45 % NACL 1,000 ML IV SCH (16:57)
[2019-02-11] VITALS (7 sets, daily range): BP systolic 114–176; BP diastolic 50–88
[2019-02-11] MEDS: ZOSYN 3.375GM+NS 50ML 50 ML IV SCH ×2 (00:08→11:42)
[2019-02-11] MEDS: INSULIN HUMULIN R 100 UNIT/ML 3ML SQ SCH ×4 (00:12→18:33)
[2019-02-11 04:01] LABS: HEMATOCRIT 28.8 % (36-48); MEAN CORPUSCULAR HEMOGLOBIN 29.8 pg (27.0-33.0); MEAN CORPUSCULAR HGB CONC 33.3 g/dL (32.0-36.0); MEAN CORPUSCULAR VOLUME 89.7 fL (79-99); NUCLEATED RED BLOOD CELLS 0.3 % (0.0-0.19); PLATELET COUNT (AUTO) 128 K/uL (130-400); RED BLOOD CELL COUNT(AUTO) 3.21 MIL/uL (4.00-5.50); WHITE BLOOD COUNT (AUTO) 10.5 K/uL (4.8-10.8)
[2019-02-11 04:11] LABS: ALBUMIN 1.6 g/dL (3.5-5.0); BILIRUBIN,TOTAL 0.8 mg/dL (0.2-1.0); CREATININE 1.2 mg/dL (0.5-1.5); TOTAL PROTEIN, SERUM 5.9 g/dL (6.0-8.3)
[2019-02-11 04:25] LABS: POTASSIUM 2.9 mmol/L (3.5-5.1)
[2019-02-11] MEDS: DEXTROSE 5%-WATER 1,000 ML IV SCH (05:08)
[2019-02-11] MEDS: POTASSIUM CHLORIDE 10% ELIXIR 20 MEQ/15 ML UDCUP PO PRN (06:27)
[2019-02-11] MEDS: FAMOTIDINE/PF 20 MG/2 ML VIAL IV SCH (08:10)
[2019-02-11] MEDS: METOPROLOL TARTRATE 25 MG TAB PO SCH ×2 (08:10→20:47)
[2019-02-11] MEDS: AMIODARONE HCL 200 MG TABLET PO SCH (08:10)
[2019-02-11] MEDS ORDERED: POTASSIUM CHLORIDE 10MEQ/100ML 10 MEQ/100 ML ML IV SCH (11:15)
[2019-02-11] MEDS ORDERED: BUMETANIDE 0.25 MG/ML 10 ML VIAL IVP SCH (11:15)
[2019-02-11] MEDS ORDERED: BUMETANIDE 0.25 MG/ML 4 ML VIAL ONE ×2 (11:23→11:36)
[2019-02-11] MEDS: POTASSIUM CHLORIDE 10% ELIXIR 20 MEQ/15 ML UDCUP PO SCH ×4 (11:39→20:46)
[2019-02-11] MEDS ORDERED: POTASSIUM CHLORIDE 30 MEQ in SODIUM CHLORIDE 0.9% 250 ML IV SCH (11:45)
--- NOTE | 2019-02-11 13:31 | NUR ---
DC PLAN VISITED WITH PATIENT. SPOUSE AND DAUGHTER FROM [place] IN ROOM. SPOUSE CHANGED MIND SAID OKAY FOR SNF. JOSE SIGNED FOR [facility]. REP NOTIFIED. PACKET SENT. PENDING SX CLEARANCE FOR DC DATE. Addendum: 02/11/19 at 1332 by KERLINE ALVARADO RN CM Amended: Links added.
[2019-02-11] MEDS ORDERED: BUMETANIDE 0.25 MG/ML 10 ML VIAL IM SCH (16:00)
[2019-02-11] MEDS: AMOXICILLIN/POTASSIUM CLAV 875-125 TABLET PO SCH (20:46)
[2019-02-11] MEDS: ONDANSETRON HCL 4 MG/2 ML VIAL IVP PRN (21:01)
[2019-02-12] MEDS: POTASSIUM CHLORIDE 10% ELIXIR 20 MEQ/15 ML UDCUP PO SCH (00:06)
[2019-02-12 03:54] VITALS: BP 150/82
[2019-02-12 03:55] LABS: BASOPHILS % (AUTO) 0.2 % (0.0-5.0); EOSINOPHILS % (AUTO) 1.1 % (0.0-8.0); LYMPHOCYTES % (AUTO) 12.3 % (21.0-51.0); MEAN CORPUSCULAR HGB CONC 32.3 g/dL (32.0-36.0); MEAN CORPUSCULAR VOLUME 89.7 fL (79-99); MONOCYTES % (AUTO) 7.3 % (3.0-13.0); NEUTROPHILS % (AUTO) 79.1 % (40.0-77.0); NUCLEATED RED BLOOD CELLS 0.8 % (0.0-0.19); PLATELET COUNT (AUTO) 234 K/uL (130-400); RED BLOOD CELL COUNT(AUTO) 3.56 MIL/uL (4.00-5.50); RED CELL DISTRIBUTION WIDTH 15.5 % (11.0-15.5); WHITE BLOOD COUNT (AUTO) 16.1 K/uL (4.8-10.8)
[2019-02-12 04:07] LABS: ALBUMIN 1.8 g/dL (3.5-5.0); BILIRUBIN,TOTAL 0.7 mg/dL (0.2-1.0); CREATININE 1.2 mg/dL (0.5-1.5); MAGNESIUM 1.1 mg/dL (1.80-2.40); PHOSPHORUS 2.2 mg/dL (2.5-4.9); POTASSIUM 4.8 mmol/L (3.5-5.1); TOTAL PROTEIN, SERUM 6.4 g/dL (6.0-8.3)
[2019-02-12] MEDS ORDERED: DEXTROSE 50%-WATER 50 ML DISP.SYRIN IV ONE (05:29)
[2019-02-12] MEDS: INSULIN HUMULIN R 100 UNIT/ML 3ML SQ SCH ×4 (05:33→18:03)
[2019-02-12] MEDS: MAGNESIUM 2GM PREMIX 50ML 50 ML IV PRN (05:40)
[2019-02-12 07:09] VITALS: BP 116/49
[2019-02-12] MEDS: FAMOTIDINE/PF 20 MG/2 ML VIAL IV SCH (08:26)
[2019-02-12] MEDS: AMIODARONE HCL 200 MG TABLET PO SCH (08:26)
[2019-02-12] MEDS: AMOXICILLIN/POTASSIUM CLAV 875-125 TABLET PO SCH ×2 (08:26→21:58)
[2019-02-12] MEDS: METOPROLOL TARTRATE 25 MG TAB PO SCH ×3 (08:26→21:58)
[2019-02-12] MEDS ORDERED: BUMETANIDE 0.25 MG/ML 4 ML VIAL IVP SCH (08:45)
[2019-02-12] MEDS ORDERED: AMIODARONE HCL 900 MG in DEXTROSE 5%-WATER 500 ML IV PRN (11:00)
[2019-02-12] MEDS ORDERED: AMIODARONE HCL 150 MG in DEXTROSE 5%-WATER 100 ML IV PRN (11:00)
[2019-02-12 12:04] VITALS: BP 108/55
--- NOTE | 2019-02-12 12:34 | NUR ---
RD FOLLOW UP NOTE Pt with Clear Liquid diet in place. Upon visit, Pt and daughter report vomiting with Gelatin yesterday but tolerates broth and tea well. Pt states Ensure is too sweet for liking but willing to try with poor PO. Recommend 30mL ProMod TID secondary to severe PCM. Recommend to advance diet as tolerated, goal to reach 75gm, Low fat, Mechanical soft/chopped diet. LBM 02/12/19. Pt monitored labs: Na 151, Cl 115, BUN 32, GFr 46, Glu 120, P 2.2, Mg 1.10. RD to continue to monitor. Please notify RD as additional nutrition concerns arise. Thank you. Addendum: 02/12/19 at [address] Amended: Links added.
[2019-02-12 14:58] VITALS: BP 109/59
--- NOTE | 2019-02-12 17:02 | NUR ---
DC PLAN PATIENT ACCEPTED AT 1600 TO FACILITY LET NURSE KNOW. NURSE INFORMED THAT PATIENT HAD BEEN STARTED ON GTT AND WOULD DC IN THE MORNING. LET REP NOW. Addendum: 02/12/19 at 1706 by KERLINE ALVARADO RN CM Amended: Links added.
[2019-02-12 20:12] VITALS: BP 155/68
[2019-02-13] VITALS: BP 117/80
[2019-02-13 04:04] VITALS: BP 130/58
[2019-02-13] MEDS: INSULIN HUMULIN R 100 UNIT/ML 3ML SQ SCH ×2 (06:00)
[2019-02-13 07:40] VITALS: BP 139/62
[2019-02-13] MEDS: METOPROLOL TARTRATE 25 MG TAB PO SCH ×4 (09:00→20:17)
[2019-02-13] MEDS: AMOXICILLIN/POTASSIUM CLAV 875-125 TABLET PO SCH ×2 (09:39→20:04)
[2019-02-13] MEDS: FAMOTIDINE/PF 20 MG/2 ML VIAL IV SCH (09:40)
[2019-02-13 11:39] VITALS: BP 144/54
[2019-02-13 15:10] VITALS: BP 148/75
[2019-02-13 19:18] VITALS: BP 151/62
[2019-02-13] MEDS: HYDROMORPHONE 1 MG/1 ML AMP IVP PRN (20:09)
[2019-02-14] VITALS: BP 137/65
[2019-02-14 03:46] VITALS: BP 131/75
[2019-02-14] MEDS: INSULIN HUMULIN R 100 UNIT/ML 3ML SQ SCH ×2 (07:08→12:00)
--- NOTE | 2019-02-14 07:39 | NUR ---
meri spoke with dr mancera regarding pradaxa medication, med has been on hold since the and has not had any labs . dr mancera informed me that he had restarted the pradaxa on the and if it was still on hold to resume the medication, find out who put it on hold and why and to also consult with cardio to see if she will need po amiodorone now that drip is completed
[2019-02-14 08:03] VITALS: BP 143/56
[2019-02-14] MEDS: METOPROLOL TARTRATE 25 MG TAB PO SCH ×3 (09:00→14:40)
[2019-02-14 09:16] LABS: CREATININE 1.2 mg/dL (0.5-1.5); POTASSIUM 4.1 mmol/L (3.5-5.1)
[2019-02-14] MEDS: FAMOTIDINE/PF 20 MG/2 ML VIAL IV SCH (09:37)
[2019-02-14] MEDS: AMOXICILLIN/POTASSIUM CLAV 875-125 TABLET PO SCH (09:37)
[2019-02-14 11:52] VITALS: BP 123/64
--- NOTE | 2019-02-14 13:00 | NUR ---
cm note call made to [facility] and spoke to Viviane barrera, and states pt has authorization that is still good to return back to [facility] today. can go via van transport. updated [place] primary nurse.
--- NOTE | 2019-02-14 17:00 | NUR ---
SBAR report handed to Esme Cristina LVN of [facility]. All questions were answered.
== END 2019-02-14 17:45 | DRG 854 ==
LOC: EDH 19:05 → EDHIP 23:25 → 2AH 02-05 00:41 → EDHIP 02-05 01:44 → 2AH 02-05 15:43 → 2BH 02-07 14:54 → 2DH 02-12 14:02
PROVIDERS: ADMIT Internal Medicine; ATTEND Internal Medicine
PROC: 0FQ Hepatobiliary System and Pancreas, Repair (ICD-10-PCS; 2019-02-07)
PROC: 5A1935Z Respiratory Ventilation, Less than 24 Consecutive Hours (ICD-10-PCS; 2019-02-07)
PROC: 0BH17EZ Insertion of Endotracheal Airway into Trachea, Via Natural or Artificial Opening (ICD-10-PCS; 2019-02-07)
PROC: 0FT44ZZ Resection of Gallbladder, Percutaneous Endoscopic Approach (ICD-10-PCS; principal; 2019-02-07 13:20)
DX: A41.9 Sepsis, unspecified organism (principal); K81.0 Acute cholecystitis; E44.0 Moderate protein-calorie malnutrition; D68.59 Other primary thrombophilia; F05 Delirium due to known physiological condition; I50.32 Chronic diastolic (congestive) heart failure; I13.2 Hypertensive heart and chronic kidney disease with heart failure and with stage 5 chronic kidney disease, or end stage renal disease; I48.20 Chronic atrial fibrillation, unspecified; N02.9 Recurrent and persistent hematuria with unspecified morphologic changes; N17.9 Acute kidney failure, unspecified; N18.5 Chronic kidney disease, stage 5; I25.10 Atherosclerotic heart disease of native coronary artery without angina pectoris; I49.5 Sick sinus syndrome; E11.22 Type 2 diabetes mellitus with diabetic chronic kidney disease; I48.0 Paroxysmal atrial fibrillation; K82.A1 Gangrene of gallbladder in cholecystitis; I45.10 Unspecified right bundle-branch block; D64.9 Anemia, unspecified; E03.9 Hypothyroidism, unspecified; E78.5 Hyperlipidemia, unspecified; E87.6 Hypokalemia; I25.5 Ischemic cardiomyopathy; K82.8 Other specified diseases of gallbladder; Z68.33 Body mass index [BMI] 33.0-33.9, adult; Z91.048 Other nonmedicinal substance allergy status; I25.2 Old myocardial infarction; Z95.0 Presence of cardiac pacemaker; Z79.01 Long term (current) use of anticoagulants; Z79.02 Long term (current) use of antithrombotics/antiplatelets; Z95.1 Presence of aortocoronary bypass graft; Z90.49 Acquired absence of other specified parts of digestive tract; Z88.8 Allergy status to other drugs, medicaments and biological substances; Z86.73 Personal history of transient ischemic attack (TIA), and cerebral infarction without residual deficits; Z83.2 Family history of diseases of the blood and blood-forming organs and certain disorders involving the immune mechanism; Z82.49 Family history of ischemic heart disease and other diseases of the circulatory system
CPT/HCPCS: 36415; 36600; 70450; 71045; 74018; 74176; 76705; 78226; 80048; 80053; 81001; 82550; 82803; 82948; 83690; 83735; 84100; 84484; 85025; 85027; 85060; 85610; 85730; 92610; 93005; 93306; 94002; 94003; 97039; 99291; A4344; A9537; G0378; J0282; J0330; J1100; J1170; J1815; J2001; J2250; J2270; J2405; J2543; J2704; J2710; J3010; J3475; J3480; J3490; J7030; J7042; J7060; J7070

== ENCOUNTER 2019-03-29 18:05 | Observation (INO) | payer OTHER ==
[~2019-03-29] VITALS: Ht 160 cm; Wt 64.2 kg
[2019-03-29 19:18] LABS: BASOPHILS % (AUTO) 0.3 % (0.0-5.0); HEMATOCRIT 35.7 % (36-48); LYMPHOCYTES % (AUTO) 19.8 % (21.0-51.0); MEAN CORPUSCULAR HEMOGLOBIN 27.2 pg (27.0-33.0); MEAN CORPUSCULAR HGB CONC 30.5 g/dL (32.0-36.0); MONOCYTES % (AUTO) 8.3 % (3.0-13.0); NEUTROPHILS % (AUTO) 69.8 % (40.0-77.0); PLATELET COUNT (AUTO) 343 K/uL (130-400); RED BLOOD CELL COUNT(AUTO) 4.01 MIL/uL (4.00-5.50); RED CELL DISTRIBUTION WIDTH 18.7 % (11.0-15.5); WHITE BLOOD COUNT (AUTO) 12.5 K/uL (4.8-10.8)
[2019-03-29 19:25] LABS: CREATININE 1.5 mg/dL (0.5-1.5); POTASSIUM 3.1 mmol/L (3.5-5.1)
[2019-03-29 19:29] LABS: ALBUMIN 2.3 g/dL (3.5-5.0); BILIRUBIN,DIRECT 0.3 mg/dL (0.0-0.3); BILIRUBIN,TOTAL 0.7 mg/dL (0.2-1.0); TOTAL PROTEIN, SERUM 6.9 g/dL (6.0-8.3)
[2019-03-29] MEDS ORDERED: SODIUM CHLORIDE 0.9% 1000ML 1,000 ML IV ONE (19:35)
[2019-03-29 19:37] LABS: INR 1.38 (0.85-1.15); PARTIAL THROMBOPLASTIN TIME 46.7 SEC (26.3-35.5); PROTHROMBIN TIME 14.3 SEC (9.6-11.6)
[2019-03-29] MEDS ORDERED: LOPERAMIDE HCL 2 MG CAP PO ONE (22:00)
[2019-03-29 23:20] VITALS: BP 119/56
[2019-03-29] MEDS ORDERED: LOPERAMIDE HCL 2 MG CAP PO PRN (23:45)
[2019-03-30] MEDS ORDERED: LOPERAMIDE HCL 2 MG CAP PO PRN (02:30)
[2019-03-30 04:11] VITALS: BP 125/47
[2019-03-30 06:15] LABS: HEMATOCRIT 38.3 % (36-48); MEAN CORPUSCULAR HEMOGLOBIN 26.5 pg (27.0-33.0); MEAN CORPUSCULAR HGB CONC 29.5 g/dL (32.0-36.0); MEAN CORPUSCULAR VOLUME 89.9 fL (79-99); PLATELET COUNT (AUTO) 110 K/uL (130-400); RED BLOOD CELL COUNT(AUTO) 4.26 MIL/uL (4.00-5.50); RED CELL DISTRIBUTION WIDTH 18.7 % (11.0-15.5); WHITE BLOOD COUNT (AUTO) 12.1 K/uL (4.8-10.8)
[2019-03-30 07:30] VITALS: BP 120/48
[2019-03-30 11:00] VITALS: BP 123/60
[2019-03-30] MEDS ORDERED: POTASSIUM CHLORIDE 20MEQ/100ML 100 ML IV PRN ×2 (15:30)
[2019-03-30] MEDS ORDERED: POTASSIUM CHLORIDE 10% ELIXIR 20 MEQ/15 ML UDCUP PO PRN (15:30)
[2019-03-30] MEDS ORDERED: LIDOCAINE HCL-MPF 1% 2ML VIAL IV PRN ×2 (15:30)
[2019-03-30 16:19] VITALS: BP 105/53
[2019-03-30 20:00] VITALS: BP 127/78
[2019-03-30] MEDS ORDERED: CIPROFLOXACIN HCL 500 MG TABLET PO SCH (21:00)
[2019-03-30] MEDS: METOPROLOL TARTRATE 50 MG TAB PO SCH (21:31)
[2019-03-30] MEDS: DABIGATRAN ETEXILATE MESYLATE 150 MG CAPSULE PO SCH (21:32)
[2019-03-30] MEDS: ATORVASTATIN CALCIUM 40 MG TABLET PO SCH (21:32)
[2019-03-31] VITALS: BP 108/46
[2019-03-31 04:00] VITALS: BP 101/55
[2019-03-31] MEDS: LEVOTHYROXINE 50 MCG TABLET PO SCH (06:06)
[2019-03-31 07:30] VITALS: BP 115/51
[2019-03-31] MEDS ORDERED: HYDROCHLOROTHIAZIDE 25 MG TABLET PO SCH (09:00)
[2019-03-31] MEDS: DABIGATRAN ETEXILATE MESYLATE 150 MG CAPSULE PO SCH ×2 (09:53→21:12)
[2019-03-31] MEDS: PANTOPRAZOLE SODIUM 40 MG TABLET.DR PO SCH (09:53)
[2019-03-31] MEDS: POTASSIUM CHLORIDE 20 MEQ ERTAB PO PRN ×4 (09:55→21:10)
[2019-03-31 11:00] VITALS: BP 114/55
--- NOTE | 2019-03-31 13:02 | NUR ---
DCP CM met with pt and family discussed dc plans. Pt is semi-independent prior to admission. Lives at home with spouse, son live close by Pt has a provider 2-3 hrs/day, walker, wheelchair, and cane. Denies any other equipments/services. Feels safe to go back home, son able to assist with transportation and needs as necessary. DC plan to home once stable. CM to cont to follow up. Addendum: 03/31/19 at 1304 by POP ENGLAND LVN CM Amended: Links added.
[2019-03-31 16:00] VITALS: BP 107/53
[2019-03-31 20:00] VITALS: BP 110/69
[2019-03-31] MEDS: ATORVASTATIN CALCIUM 40 MG TABLET PO SCH (21:11)
[2019-03-31] MEDS: METOPROLOL TARTRATE 50 MG TAB PO SCH (21:11)
[2019-04-01] VITALS: BP 104/48
[2019-04-01 04:00] VITALS: BP 108/48
[2019-04-01 05:32] LABS: HEMATOCRIT 32.4 % (36-48); MEAN CORPUSCULAR HEMOGLOBIN 27.3 pg (27.0-33.0); MEAN CORPUSCULAR HGB CONC 30.6 g/dL (32.0-36.0); MEAN CORPUSCULAR VOLUME 89.3 fL (79-99); PLATELET COUNT (AUTO) 378 K/uL (130-400); RED BLOOD CELL COUNT(AUTO) 3.63 MIL/uL (4.00-5.50); RED CELL DISTRIBUTION WIDTH 18.7 % (11.0-15.5); WHITE BLOOD COUNT (AUTO) 8.6 K/uL (4.8-10.8)
[2019-04-01 05:48] LABS: ALBUMIN 1.9 g/dL (3.5-5.0); BILIRUBIN,TOTAL 0.5 mg/dL (0.2-1.0); CREATININE 1.2 mg/dL (0.5-1.5); MAGNESIUM 2.2 mg/dL (1.80-2.40); POTASSIUM 4.2 mmol/L (3.5-5.1); TOTAL PROTEIN, SERUM 5.9 g/dL (6.0-8.3)
[2019-04-01] MEDS: LEVOTHYROXINE 50 MCG TABLET PO SCH (06:34)
[2019-04-01 08:00] VITALS: BP 109/51
[2019-04-01] MEDS: PANTOPRAZOLE SODIUM 40 MG TABLET.DR PO SCH (09:24)
[2019-04-01] MEDS: DABIGATRAN ETEXILATE MESYLATE 150 MG CAPSULE PO SCH (09:24)
[2019-04-01 11:52] VITALS: BP 119/49
== END 2019-04-01 16:35 | disposition home or self-care (01) ==
LOC: EDH 18:05 → EEVIPCON 18:05 → EDHIP 19:56 → INTOOBSV 19:56 → OBSVTOIN 19:56 → 3AH 21:37
PROVIDERS: ADMIT Internal Medicine; ATTEND Internal Medicine
DX: K52.9 Noninfective gastroenteritis and colitis, unspecified (principal); E87.6 Hypokalemia; D72.829 Elevated white blood cell count, unspecified; I10 Essential (primary) hypertension; E11.9 Type 2 diabetes mellitus without complications; I48.91 Unspecified atrial fibrillation; E78.5 Hyperlipidemia, unspecified; E86.0 Dehydration; Z86.73 Personal history of transient ischemic attack (TIA), and cerebral infarction without residual deficits; Z96.653 Presence of artificial knee joint, bilateral; Z90.49 Acquired absence of other specified parts of digestive tract; Z95.1 Presence of aortocoronary bypass graft; Z95.0 Presence of cardiac pacemaker; Z79.84 Long term (current) use of oral hypoglycemic drugs; Z79.899 Other long term (current) drug therapy; Z91.040 Latex allergy status; Z91.048 Other nonmedicinal substance allergy status
CPT/HCPCS: 36415 ×4; 71045; 80053 ×2; 80076; 82150; 82550; 82948 ×9; 83630; 83690; 83735; 84132; 84484; 85025; 85027 ×2; 85610; 85730; 87046; 87493; 93005; 99285; G0378 ×69; J7030

== ENCOUNTER 2019-04-23 17:35 | Observation (INO) | payer OTHER ==
[~2019-04-23] VITALS: Ht 152.4 cm; Wt 65.8 kg
[2019-04-23 18:22] LABS: BASOPHILS % (AUTO) 0.6 % (0.0-5.0); EOSINOPHILS % (AUTO) 1.2 % (0.0-8.0); LYMPHOCYTES % (AUTO) 35.8 % (21.0-51.0); MEAN CORPUSCULAR HEMOGLOBIN 27.6 pg (27.0-33.0); MEAN CORPUSCULAR HGB CONC 31.4 g/dL (32.0-36.0); MEAN CORPUSCULAR VOLUME 87.7 fL (79-99); MONOCYTES % (AUTO) 8.8 % (3.0-13.0); PLATELET COUNT (AUTO) 289 K/uL (130-400); RED BLOOD CELL COUNT(AUTO) 3.99 MIL/uL (4.00-5.50); WHITE BLOOD COUNT (AUTO) 10.7 K/uL (4.8-10.8)
[2019-04-23 18:39] LABS: ALBUMIN 2.2 g/dL (3.5-5.0); BILIRUBIN,TOTAL 0.4 mg/dL (0.2-1.0); CREATININE 1.6 mg/dL (0.5-1.5); TOTAL PROTEIN, SERUM 6.6 g/dL (6.0-8.3)
[2019-04-23 18:43] LABS: POTASSIUM 2.4 mmol/L (3.5-5.1)
[2019-04-23] MEDS ORDERED: POTASSIUM CHLORIDE 10MEQ/100ML 100 ML IV ONE (19:00)
[2019-04-23] MEDS ORDERED: POTASSIUM BICARB/CIT AC 25 MEQ TABLET.EFF ONE (19:00)
[2019-04-23] MEDS ORDERED: LIDOCAINE HCL-MPF 1% 2ML VIAL ONE (19:34)
[2019-04-23] MEDS ORDERED: MAGNESIUM 2GM PREMIX 50ML 50 ML IV ONE ×2 (19:34→23:12)
[2019-04-23 21:55] VITALS: BP 139/68
[2019-04-23] MEDS ORDERED: MAGNESIUM 2GM PREMIX 50ML 50 ML IV PRN (22:00)
[2019-04-23] MEDS ORDERED: GLUCAGON 1MG KIT 1 MG ML IM PRN (22:00)
[2019-04-23] MEDS ORDERED: DEXTROSE 50%-WATER 50 ML DISP.SYRIN IV PRN (22:00)
[2019-04-23] MEDS ORDERED: POTASSIUM CHLORIDE 20 MEQ ERTAB PO PRN (23:00)
[2019-04-23] MEDS ORDERED: POTASSIUM CHLORIDE 10% ELIXIR 20 MEQ/15 ML UDCUP PO PRN (23:00)
[2019-04-23] MEDS ORDERED: LIDOCAINE HCL-MPF 1% 2ML VIAL IV PRN ×2 (23:00)
[2019-04-23] MEDS ORDERED: POTASSIUM CHLORIDE 20MEQ/100ML 100 ML IV PRN ×2 (23:00)
[2019-04-24 00:19] VITALS: BP 115/50
[2019-04-24] MEDS ORDERED: POTASSIUM CHLORIDE 10% ELIXIR 20 MEQ/15 ML UDCUP ONE (00:27)
[2019-04-24 03:20] VITALS: BP 127/83
[2019-04-24 05:12] LABS: CREATININE 1.3 mg/dL (0.5-1.5); MAGNESIUM 3.1 mg/dL (1.80-2.40); PHOSPHORUS 2.5 mg/dL (2.5-4.9); POTASSIUM 3.9 mmol/L (3.5-5.1)
[2019-04-24] MEDS: INSULIN R PO SS1 SQ SCH ×2 (06:37→11:30)
--- NOTE | 2019-04-24 07:51 | NUR ---
PATIENT UPDATE Admitted for hypokalemia from her MD's office bec of K+ of 2.8 , labs checked in ER and the K+ was worst at 2.4. Was given a total of 60meq of potassium from ER. Started on a hypokalemia protocol as per order, pt given additional 40meq kcl elixir and also adm 2 gms of mgso4 via the pump for a mg level of 1.20. Patient placed on telemetry monitoring , known afib at a controlled rate in the 60's to 70's with occasional pvc's on admission. Electrolytes corrected, K+ now at 3.9 from 2.4 and Mg at 3.10 from 1.20. No complaints of any chest pain, no shortness of breath. With left sided weakness from a previous stroke, ambulates with a walker in their house. Left leg with 2+ edema, slight redness noted, weak leg from the old stroke. No complaints voiced out, vital signs stable.
[2019-04-24 11:00] VITALS: BP 138/56
--- NOTE | 2019-04-24 12:29 | NUR ---
CM NOTE CM spoke to Dr. Acevedo regarding status clarification. States patient is observation status and plans for discharge today.
== END 2019-04-24 17:00 | disposition home or self-care (01) ==
LOC: EDH 17:35 → EDHIP 19:46 → 3AH 20:35
PROVIDERS: ADMIT Internal Medicine; ATTEND Internal Medicine
DX: E87.6 Hypokalemia (principal); E83.42 Hypomagnesemia; I12.9 Hypertensive chronic kidney disease with stage 1 through stage 4 chronic kidney disease, or unspecified chronic kidney disease; E11.22 Type 2 diabetes mellitus with diabetic chronic kidney disease; N18.9 Chronic kidney disease, unspecified; E78.5 Hyperlipidemia, unspecified; I48.91 Unspecified atrial fibrillation; Z86.73 Personal history of transient ischemic attack (TIA), and cerebral infarction without residual deficits; Z90.49 Acquired absence of other specified parts of digestive tract; Z95.1 Presence of aortocoronary bypass graft; Z95.0 Presence of cardiac pacemaker; Z95.5 Presence of coronary angioplasty implant and graft; Z96.653 Presence of artificial knee joint, bilateral; Z79.899 Other long term (current) drug therapy
CPT/HCPCS: 36415 ×2; 80048; 80053; 82948 ×2; 83735 ×2; 84100; 85025; 93005; 96365; 96366; 99284; G0378 ×6; J3475 ×2; J3490